=== PATIENT | male | born 1950 | race Caucasian/White ===

== ENCOUNTER 2017-06-23 16:17 | Inpatient (IN) | payer MEDICARE, OTHER ==
[~2017-06-23] VITALS: Ht 167.6 cm; Wt 54.4 kg
[2017-06-23 16:19] VITALS: BP 126/86
[2017-06-23 17:10] LABS: BASOPHILS % (AUTO) 1.9 % (0.0-2.0); EOSINOPHILS % (AUTO) 3.5 % (0.0-3.0); LYMPHOCYTES % (AUTO) 44.8 % (20.0-45.0); MEAN CORPUSCULAR HEMOGLOBIN 31.1 PG (27.0-31.0); MEAN CORPUSCULAR HGB CONC 31.1 G/DL (32.0-36.0); MEAN CORPUSCULAR VOLUME 100 FL (80-99); MEAN PLATELET VOLUME 5.8 FL (6.5-10.1); MONOCYTES % (AUTO) 9.8 % (1.0-10.0); PLATELET COUNT 228 K/UL (150-450); RED BLOOD COUNT 3.81 M/UL (4.70-6.10); RED CELL DISTRIBUTION WIDTH 12.4 % (11.6-14.8); WHITE BLOOD COUNT 5.7 K/UL (4.8-10.8)
[2017-06-23 17:23] LABS: ANION GAP 8 mmol/L (5-15); CALCIUM 8.3 MG/DL (8.5-10.1); CARBON DIOXIDE 27 MMOL/L (21-32); CHLORIDE 106 MMOL/L (98-107); GLOMERULAR FILTRATION RATE > 60 mL/min (>60); POTASSIUM 4.3 MMOL/L (3.5-5.1); SODIUM 140 MMOL/L (136-145)
[2017-06-23 17:36] LABS: ALANINE AMINOTRANSFERASE 36 U/L (12-78); ALBUMIN/GLOBULIN RATIO 0.8 (1.0-2.7); ASPARTATE AMINO TRANSFERASE 64 U/L (15-37); CKMB 4.1 NG/ML (0.0-3.6); TOTAL PROTEIN 6.9 G/DL (6.4-8.2)
[2017-06-23] MEDS ORDERED: ASPIRIN EC81 MG ORAL (18:15)
[2017-06-23] MEDS ORDERED: HYDROCHLOROTHIA25 MG ORAL (18:16)
[2017-06-23] MEDS ORDERED: TAMSULOSIN HCL0.4 MG ORAL (18:16)
[2017-06-23] MEDS ORDERED: ATORVASTATIN CA40 MG ORAL (18:17)
[2017-06-23] MEDS ORDERED: LISINOPRIL20 MG ORAL (18:17)
[2017-06-23 18:33] VITALS: BP 158/71
[2017-06-23 21:00] VITALS: BP 153/68
--- NOTE | 2017-06-23 21:43 | Emergency Room Report ---
History of Present Illness General Chief Complaint: Generalized Weakness Source: Patient, EMS Present Illness HPI 66-year-old male presents ED for evaluation. Per EMS patient coming from boarding care facility. capital campaign fundraiser called 911 because patient was found in his apt and lying in his own feces. Patient states he feels very weak. Poor appetite. Denies any fevers or chills. Denies chest pain or shortness of breath. No other aggravating or leading factors. Denies any other associated symptoms Allergies: Coded Allergies: No Known Allergies (Unverified , 06/23/17) Patient History Past Medical History: HTN Past Surgical History: none Pertinent Family History: none Social History: Denies: smoking, alcohol use, drug use Immunizations: UTD Reviewed Nursing Documentation: PMH: Agreed, PSxH: Agreed Nursing Documentation-PMH Hx Hypertension: Yes - hyperlipedema Review of Systems All Other Systems: negative except mentioned in HPI Physical Exam Vital Signs Date Time Temp Pulse Resp B/P (MAP) Pulse Ox O2 Delivery O2 Flow Rate FiO2 06/23/17 16:09 98.1 82 16 126/86 98 Room Air Sp02 EP Interpretation: reviewed, normal General Appearance: no apparent distress, GCS 15, non-toxic, thin Head: normocephalic, atraumatic Eyes: bilateral eye normal inspection, bilateral eye PERRL ENT: hearing grossly normal, normal pharynx, no angioedema, normal voice Neck: full range of motion, supple/symm/no masses Respiratory: chest non-tender, lungs clear, normal breath sounds, speaking full sentences Cardiovascular #1: regular rate, rhythm, no edema Cardiovascular #2: 2+ carotid (R), 2+ carotid (L), 2+ radial (R), 2+ radial (L) , 2+ dorsalis pedis (R), 2+ dorsalis pedis (L) Gastrointestinal: normal bowel sounds, non tender, soft, non-distended, no guarding, no rebound Rectal: deferred Genitourinary: normal inspection, no CVA tenderness Musculoskeletal: back normal, gait/station normal, normal range of motion, non- tender Neurologic: alert, oriented x3, responsive, motor strength/tone normal, sensory intact, speech normal Psychiatric: judgement/insight normal, memory normal, mood/affect normal, no suicidal/homicidal ideation Reflexes: 3+ bicep (R), 3+ bicep (L), 3+ tricep (R), 3+ tricep (L), 3+ knee (R) , 3+ knee (L) Skin: normal color, no rash, warm/dry, well hydrated Lymphatic: no adenopathy Medical Decision Making Diagnostic Impression: Primary Impression: Failure to thrive Qualified Codes: R62.7 - Adult failure to thrive Additional Impression: Episode of generalized weakness ER Course Hospital Course 66-year-old male presenting to ED with generalized weakness, unable to care for herself Differential diagnoses include: Pneumonia, UTI, sepsis, dehydration, NV/ unstable angina, failure to thrive Clinical course Patient placed on stretcher. On compliance monitor with tachycardia. After initial history and physical, I ordered labs, IV fluids, EKG, chest x-ray, IVFs Labs - no leukocytosis, hb/hct stable, electrolytes ok, troponins negative EKG - NSR, no acute ischemic changes interpreted by me CXR - no acute process Case discussed with Dr Tsai and they agreed to admit patient to their service for further care and support I feel this is a highly complex case requiring extensive working including EKG/ Rhythm strip, Xray/CT/US, Blood/urine lab work, repeat exams while in ED, and administration of strong opiates/narcotics for pain control, admission to hospital or close patient follow up. Diagnosis - failure to thrive, weakness Patient admitted to floor in serious condition Labs Test 06/23/17 16:55 White Blood Count 5.7 K/UL (4.8-10.8) Red Blood Count 3.81 M/UL (4.70-6.10) Hemoglobin 11.9 G/DL (14.2-18.0) Hematocrit 38.1 % (42.0-52.0) Mean Corpuscular Volume 100 FL (80-99) Mean Corpuscular Hemoglobin 31.1 PG (27.0-31.0) Mean Corpuscular Hemoglobin Concent 31.1 G/DL (32.0-36.0) Red Cell Distribution Width 12.4 % (11.6-14.8) Platelet Count 228 K/UL (150-450) Mean Platelet Volume 5.8 FL (6.5-10.1) Neutrophils (%) (Auto) 40.0 % (45.0-75.0) Lymphocytes (%) (Auto) 44.8 % (20.0-45.0) Monocytes (%) (Auto) 9.8 % (1.0-10.0) Eosinophils (%) (Auto) 3.5 % (0.0-3.0) Basophils (%) (Auto) 1.9 % (0.0-2.0) Sodium Level 140 MMOL/L (136-145) Potassium Level 4.3 MMOL/L (3.5-5.1) Chloride Level 106 MMOL/L (98-107) Carbon Dioxide Level 27 MMOL/L (21-32) Anion Gap 8 mmol/L (5-15) Blood Urea Nitrogen 5 mg/dL (7-18) Creatinine 1.0 MG/DL (0.55-1.30) Estimat Glomerular Filtration Rate > 60 mL/min (>60) Glucose Level 83 MG/DL (74-106) Calcium Level 8.3 MG/DL (8.5-10.1) Total Bilirubin 0.1 MG/DL (0.2-1.0) Aspartate Amino Transf (AST/SGOT) 64 U/L (15-37) Alanine Aminotransferase (ALT/SGPT) 36 U/L (12-78) Alkaline Phosphatase 163 U/L (46-116) Total Creatine Kinase 86 U/L (26-308) Creatine Kinase MB 4.1 NG/ML (0.0-3.6) Creatine Kinase MB Relative Index 4.7 Troponin I 0.003 ng/mL (0.000-0.056) Total Protein 6.9 G/DL (6.4-8.2) Albumin 3.1 G/DL (3.4-5.0) Globulin 3.8 g/dL Albumin/Globulin Ratio 0.8 (1.0-2.7) EKG Diagnostic Results Rate: normal Rhythm: NSR ST Segments: no acute changes ASA given to the pt in ED: No Rhythm Strip Diag. Results EP Interpretation: yes Rhythm: NSR, no PVC's, no ectopy Chest X-Ray Diagnostic Results Chest X-Ray Diagnostic Results : Chest X-Ray Ordered: Yes # of Views/Limited/Complete: 1 View Indication: Other - weakness EP Interpretation: Yes Interpretation: no consolidation, no effusion, no pneumothorax, no acute cardiopulmonary disease Impression: No acute disease Electronically Signed by: Electronically signed by Brooks Chambers MD Last Vital Signs Date Time Temp Pulse Resp B/P (MAP) Pulse Ox O2 Delivery O2 Flow Rate FiO2 06/23/17 21:05 98.1 91 21 153/68 98 Room Air Status: improved Disposition: ADMITTED INPATIENT Condition: Serious Referrals: NOT CHOSEN IPA/,REFERRING (PCP) BROOKS CHAMBERS M.D. Jun 23, 2017 21:43
[2017-06-23] MEDS: Atorvastatin 20mg tab ORAL SCH (23:50)
[2017-06-23] MEDS: Tamsulosin 0.4mg cap ORAL SCH (23:50)
[2017-06-23] MEDS: D5NS 1,000 ML IV SCH (23:51)
[2017-06-24] VITALS: BP 165/74
[2017-06-24 03:13] VITALS: BP 140/77
[2017-06-24 07:11] LABS: HEMOGLOBIN A1C 5.4 % (4.3-6.0)
[2017-06-24 07:21] LABS: THYROID STIMULATING HORMONE 1.734 uiU/mL (0.358-3.740)
[2017-06-24 08:00] VITALS: BP 150/78
--- NOTE | 2017-06-24 08:43 | Diagnostic Imaging Report ---
Indication: Shortness of breath Technique: One view of the chest Comparison: none Findings: Lungs and pleural spaces are clear. Heart size is normal Impression: No acute process
[2017-06-24] MEDS: Aspirin EC 81mg tab ORAL SCH (09:27)
[2017-06-24] MEDS: Lisinopril 20mg tab ORAL SCH (09:27)
[2017-06-24] MEDS: D5NS 1,000 ML IV SCH ×2 (09:28→17:49)
[2017-06-24] MEDS: Triamcinolone 0.5% Cr 15gm TOPIC SCH ×3 (11:00→17:35)
[2017-06-24] MEDS: Heparin 5000 units/ml inj SUBQ SCH ×2 (11:01→20:17)
[2017-06-24] MEDS: ceFAZolin sod 1 GM in D5W 55 ML IVPB SCH ×2 (11:36→21:45)
[2017-06-24 12:00] VITALS: BP 148/81
[2017-06-24 16:00] VITALS: BP 150/84
[2017-06-24] MEDS ORDERED: D5NS 1000ml IV ONE (16:53)
[2017-06-24] MEDS: Atorvastatin 20mg tab ORAL SCH (20:15)
[2017-06-24] MEDS: Tamsulosin 0.4mg cap ORAL SCH (20:15)
[2017-06-24 20:49] VITALS: BP_SYST 155; BP_SYST 164; BP_DIAS 92; BP_DIAS 96
--- NOTE | 2017-06-24 21:00 | History and Physical Report ---
DATE OF ADMISSION: 06/23/2017 CHIEF COMPLAINT: Generalized weakness, dehydration, cellulitis, psoriasis. HISTORY OF PRESENT ILLNESS: The patient is a 66-year-old male. He has a history of psoriasis, who presented with complaints of generalized weakness. The patient does admit to some recent diarrhea. He denies any fevers or chills. Had no cough. On evaluation in emergency room, he had diffuse psoriasis involving the arms and legs. He was hypertensive. The patient has had difficulty ambulating and walking and has been generally weak and his pillowcase maker recommended that he go to the hospital. PAST MEDICAL HISTORY: As above. PAST SURGICAL HISTORY: None. CURRENT MEDICATIONS: Reconciled and reviewed. ALLERGIES: None. SOCIAL HISTORY: The patient is a social drinker two to three beers a day. He has been smoking for 40 years. FAMILY HISTORY: None. REVIEW OF SYSTEMS: GENERAL: No fever or chills. Positive malaise and weakness. HEENT: No headaches or visual changes. CARDIOPULMONARY: No chest pain or shortness of breath. GASTROINTESTINAL: No nausea or vomiting. GENITOURINARY: No urgency or frequency. MUSCULOSKELETAL: No joint pain or swelling. NEUROLOGIC: No evidence of seizures. PHYSICAL EXAMINATION: VITAL SIGNS: Temperature 98 degrees, blood pressure 115/78, pulse 100, respirations 20. GENERAL: The patient is well-developed male, in no apparent distress. HEART: Regular rate and rhythm. LUNGS: Lungs are clear. ABDOMEN: Soft, nontender, nondistended. EXTREMITIES: Without clubbing or cyanosis. The patient has multiple plaques on the arms and legs, several of which are bleeding. LABORATORY DATA: Sodium was 140, creatinine was 1. Troponin 0.003. A1c was 5.4. TSH was 1.7. Hemoglobin 11. ASSESSMENT: This is a pleasant male admitted with complaints of generalized weakness, suspect secondary to dehydration from diarrhea. The patient may have some superficial skin infection and cellulitis. PLAN: IV hydration and antibiotics. We will start on treatment for psoriasis. PT/OT evaluation. The patient will likely need placement. Nato Tsai M.D. DR: Adams JOB#: [id number] CC:
[2017-06-25] MEDS: ceFAZolin sod 1 GM in D5W 55 ML IVPB SCH ×3 (05:05→20:52)
[2017-06-25 08:32] VITALS: BP 138/77
[2017-06-25] MEDS: Lisinopril 20mg tab ORAL SCH (08:52)
[2017-06-25] MEDS: Aspirin EC 81mg tab ORAL SCH (08:52)
[2017-06-25] MEDS: Heparin 5000 units/ml inj SUBQ SCH ×2 (08:54→20:46)
[2017-06-25] MEDS: Triamcinolone 0.5% Cr 15gm TOPIC SCH ×3 (08:56→17:31)
[2017-06-25] MEDS: D5NS 1,000 ML IV SCH (08:56)
--- NOTE | 2017-06-25 10:29 | General Progress Note ---
Assessment/Plan Problem List: (1) Cellulitis ICD Codes: L03.90 - Cellulitis, unspecified SNOMED: 915498089 (2) Psoriasis with pustules ICD Codes: L40.8 - Other psoriasis SNOMED: 51232025 (3) Episode of generalized weakness ICD Codes: R53.1 - Weakness SNOMED: 75703372 (4) Failure to thrive SNOMED: 17701550 Qualifiers: Qualified Codes: R62.7 - Adult failure to thrive Status: stable, progressing Assessment/Plan abx iv skin care coal tar and steroid cream pt/ot short tern snf for rehab and abx Subjective ROS Limited/Unobtainable: No Constitutional: Reports: malaise, weakness HEENT: Reports: no symptoms Cardiovascular: Reports: no symptoms Respiratory: Reports: no symptoms Gastrointestinal/Abdominal: Reports: no symptoms Genitourinary: Reports: no symptoms Neurologic/Psychiatric: Reports: no symptoms Endocrine: Reports: no symptoms Hematologic/Lymphatic: Reports: no symptoms Allergies: Coded Allergies: No Known Allergies (Unverified , 06/23/17) All Systems: reviewed and negative except above Subjective rash/cellulitis improving. no fever or chills. feels "weak" still. Objective Last 24 Hour Vital Signs Date Time Temp Pulse Resp B/P (MAP) Pulse Ox O2 Delivery O2 Flow Rate FiO2 06/25/17 08:52 138/77 06/25/17 08:32 98.0 101 20 138/77 98 06/24/17 20:49 96.4 83 20 155/92 98 Room Air 06/24/17 16:01 Room Air 06/24/17 16:00 97.7 88 20 150/84 97 06/24/17 12:01 Room Air 06/24/17 12:00 97.7 83 20 148/81 98 Intake and Output 06/24/17 06/25/17 19:00 07:00 Intake Total 1585 ml 675 ml Balance 1585 ml 675 ml Intake Oral 780 ml IV Total 805 ml 675 ml # Voids 9 4 # Bowel Movements 5 2 Height (Feet): 5 Height (Inches): 6.00 Weight (Pounds): 120 General Appearance: WD/WN, alert, thin Neck: supple Cardiovascular: normal rate, regular rhythm Respiratory/Chest: chest wall non-tender, lungs clear, normal breath sounds Abdomen: normal bowel sounds, non tender, soft, no organomegaly Edema: no edema noted Arm (L), no edema noted Arm (R), no edema noted Leg (L), no edema noted Leg (R), no edema noted Pedal (L), no edema noted Pedal (R), no edema noted Generalized IDA MEJIA Jun 25, 2017 10:29
[2017-06-25 11:27] VITALS: BP 158/89
[2017-06-25] MEDS: COAL TAR TOPIC SCH ×3 (12:04→20:51)
[2017-06-25 15:57] VITALS: BP 145/85
[2017-06-25] MEDS ORDERED: D5NS 1000ml IV ONE (16:27)
--- NOTE | 2017-06-25 17:09 | Wound Nurse Progress Note ---
Wound RN Progress Note Wound Consult Assessment done on this Pt. Noted with generalized psoriasis. No recommendation. follow MD's order. KINJAL MANZANO RN Jun 25, 2017 17:09
[2017-06-25 20:00] VITALS: BP 145/81
[2017-06-25] MEDS: Tamsulosin 0.4mg cap ORAL SCH (20:44)
[2017-06-25] MEDS: Atorvastatin 20mg tab ORAL SCH (20:45)
--- NOTE | 2017-06-26 00:26 | Cardiology Report ---
APPROVED REPORT EKG Measurement Heart [id number] Normal sinus rhythm Possible Left atrial enlargement Left axis deviation Abnormal ECG
[2017-06-26] MEDS: D5NS 1,000 ML IV SCH (03:20)
[2017-06-26] MEDS: ceFAZolin sod 1 GM in D5W 55 ML IVPB SCH ×2 (04:58→15:26)
[2017-06-26 07:50] VITALS: BP 139/88
[2017-06-26] MEDS: Lisinopril 20mg tab ORAL SCH (08:53)
[2017-06-26] MEDS: Aspirin EC 81mg tab ORAL SCH (08:53)
[2017-06-26] MEDS: Heparin 5000 units/ml inj SUBQ SCH (08:55)
[2017-06-26] MEDS: COAL TAR TOPIC SCH (08:55)
[2017-06-26] MEDS: Triamcinolone 0.5% Cr 15gm TOPIC SCH ×2 (08:55→12:27)
[2017-06-26] MEDS ORDERED: KENALOG 0.5% CR15 GM TOPIC (09:51)
[2017-06-26] MEDS ORDERED: COAL TAR TOPIC (09:51)
[2017-06-26 11:28] VITALS: BP 145/73
--- NOTE | 2017-06-26 23:00 | Discharge Summary ---
DATE OF ADMISSION: 06/24/2017 DATE OF DISCHARGE: 06/26/2017 ADMISSION DIAGNOSES: 1. Failure to thrive. 2. Dehydration. 3. Severe psoriasis. 4. Cellulitis. DISCHARGE DIAGNOSES: 1. Failure to thrive. 2. Dehydration. 3. Severe psoriasis. 4. Cellulitis. HOSPITAL COURSE: The patient is a pleasant male, who presented with complaints of failure to thrive. He had diffuse psoriasis with superinfection. He received IV antibiotics, topical steroid cream and coal tar. He improved. He was also hydrated aggressively. On discharge, he was stable, but still weak. He will be discharged to a long-term facility. Continue wound care. Antibiotics and therapy. DISCHARGE MEDICATIONS: Please see discharge medication list for discharge medications. DIET: Regular diet. ACTIVITIES: Ad-gary. FOLLOWUP: The patient will follow up in one to two days at long-term facility. Nato Tsai M.D. DR: Shaniqua JOB#: [id number] CC:
== END 2017-06-26 16:15 | DRG 596 ==
LOC: EDBD 16:17 → EMR 16:35 → 4E 18:13 → EDBEDREQ 18:17 → 4E 06-25 22:38
DX: L40.8 Other psoriasis (principal); I10 Essential (primary) hypertension; L03.90 Cellulitis, unspecified; R62.7 Adult failure to thrive; R53.1 Weakness; F17.200 Nicotine dependence, unspecified, uncomplicated; E86.0 Dehydration
CPT/HCPCS: 36415; 71010; 80053; 82378; 82550; 82553; 83036; 84443; 84484; 85025; 87081; 87324; 93005; 99285

== ENCOUNTER 2018-07-04 11:58 | Inpatient (IN) | payer MEDICARE, OTHER ==
[~2018-07-04] VITALS: Ht 170.2 cm; Wt 71.7 kg
[~2018-07-04 11:58] MED LIST: ASPIRIN EC81 MG ORAL; ATORVASTATIN CA40 MG ORAL; COAL TAR TOPIC; HYDROCHLOROTHIA25 MG ORAL; KENALOG 0.5% CR15 GM TOPIC; LISINOPRIL20 MG ORAL; TAMSULOSIN HCL0.4 MG ORAL
[2018-07-04 12:00] VITALS: BP 149/107
[2018-07-04] MEDS ORDERED: MICROZIDE12.5 M1 PO (12:07)
[2018-07-04] MEDS ORDERED: NEURONTIN300 MG ORAL (12:07)
[2018-07-04 13:40] LABS: ANION GAP 9 mmol/L (5-15); BLOOD UREA NITROGEN 9 mg/dL (7-18); CALCIUM 7.4 MG/DL (8.5-10.1); CARBON DIOXIDE 24 MMOL/L (21-32); CHLORIDE 109 MMOL/L (98-107); CREATININE 1.1 MG/DL (0.55-1.30); POTASSIUM 4.4 MMOL/L (3.5-5.1); SODIUM 142 MMOL/L (136-145)
--- NOTE | 2018-07-04 13:40 | Diagnostic Imaging Report ---
Indication: Chest pain Technique: One view of the chest Comparison: 06/23/2017 Findings: 9 mm nodular opacity projects at the right lateral lower lung, equivocally evident previously but more conspicuous currently. Similar opacity projects on the left, both of these are possibly but not definitively nipple shadows. Ill-defined opacities projected at the regions of the sixth ribs bilaterally. Lungs and pleural spaces are otherwise clear. The heart size is normal. Impression: Bilateral nodular opacities versus nipple shadows. Consider repeat chest radiograph with nipple markers Other more ill-defined possible nodular opacities also noted. Follow-up radiography might likewise be useful, with consideration for CT should abnormalities persist No definite acute abnormality demonstrated Findings discussed by phone with Dr. Salinas at the time of interpretation
[2018-07-04 13:58] LABS: ALANINE AMINOTRANSFERASE 28 U/L (12-78); ALBUMIN 1.7 G/DL (3.4-5.0); ALBUMIN/GLOBULIN RATIO 0.4 (1.0-2.7); ALKALINE PHOSPHATASE 122 U/L (46-116); ASPARTATE AMINO TRANSFERASE 61 U/L (15-37); BILIRUBIN,TOTAL 0.4 MG/DL (0.2-1.0); CKMB 3.6 NG/ML (0.0-3.6); CREATINE KINASE 215 U/L (26-308)
[2018-07-04 14:27] LABS: APPEARANCE,URINE CLEAR; BASOPHILS % (AUTO) 2.1 % (0.0-2.0); BILIRUBIN, URINE NEGATIVE (NEGATIVE); EOSINOPHILS % (AUTO) 2.1 % (0.0-3.0); GLUCOSE, URINE (UA) NEGATIVE (NEGATIVE); HEMATOCRIT 27.6 % (42.0-52.0); HEMOGLOBIN 8.7 G/DL (14.2-18.0); KETONES,URINE NEGATIVE (NEGATIVE); LEUKOCYTE ESTERASE ,URINE 1+ (NEGATIVE); LYMPHOCYTES % (AUTO) 23.7 % (20.0-45.0); MEAN CORPUSCULAR VOLUME 102 FL (80-99); MONOCYTES % (AUTO) 12.2 % (1.0-10.0); NEUTROPHILS % (AUTO) 59.9 % (45.0-75.0); NITRITE,URINE NEGATIVE (NEGATIVE); PH,URINE 6.5 (4.5-8.0); PLATELET COUNT 261 K/UL (150-450); PROTEIN,URINE 1+ (NEGATIVE); UROBILINOGEN,URINE 4 MG/DL (0.0-1.0); WHITE BLOOD COUNT 6.8 K/UL (4.8-10.8)
[2018-07-04 14:33] LABS: COLOR,URINE YELLOW
[2018-07-04] MEDS ORDERED: cefTRIAXone 1 GM in D5W 55 ML IVPB ONE (15:00)
[2018-07-04 15:23] VITALS: BP 152/85
--- NOTE | 2018-07-04 15:51 | Emergency Room Report ---
History of Present Illness General Chief Complaint: General Complaint Source: Patient Present Illness HPI Patient presents with complaints of decreased ambulation Patient has had increased redness and swelling to both of his legs Has history of cirrhosis The water main installer helper who visited the patient today reports a significantly disheveled living area patient himself denies any vomiting denies any diarrhea He does complain of general weakness And eyes any chest pain or short of breath denies any flank pain or trauma Allergies: Coded Allergies: No Known Allergies (Unverified , 06/23/17) Patient History Past Medical History: see triage record Pertinent Family History: none Reviewed Nursing Documentation: PMH: Agreed; PSxH: Agreed Nursing Documentation-PMH Hx Cardiac Problems: Yes - htn, hyperlipidemia Hx Hypertension: Yes Hx Cancer: No Hx Gastrointestinal Problems: No Hx Neurological Problems: Yes - psoriasis Hx Weakness: Yes - generalized Review of Systems All Other Systems: negative except mentioned in HPI Physical Exam Vital Signs Date Time Temp Pulse Resp B/P (MAP) Pulse Ox O2 Delivery O2 Flow Rate FiO2 07/04/18 11:54 97.5 112 16 168/100 99 Room Air Sp02 EP Interpretation: reviewed, normal General Appearance: no apparent distress Head: normocephalic, atraumatic Eyes: bilateral eye PERRL, bilateral eye EOMI ENT: hearing grossly normal, dry mucus membranes Neck: supple Respiratory: lungs clear, no rhonchi, no accessory muscle use Cardiovascular #1: regular rate, rhythm Gastrointestinal: non tender, soft, other - Some ascites Musculoskeletal: other - Significant swelling and erythema bilateral lower extremity, venous stasis Neurologic: alert, oriented x3, responsive Skin: other - As above Lymphatic: other - Edema bilaterally Medical Decision Making Diagnostic Impression: Primary Impression: Cellulitis Additional Impressions: Failure to thrive Psoriasis with pustules ER Course Patient's presentation is concerning for venous stasis Secondary cellulitis Patient initiated on broad-spectrum antibiotics Baseline blood work are appropriate Patient further hydrated and requires inpatient care Labs Test 07/04/18 13:00 07/04/18 14:15 07/04/18 15:15 Sodium Level 142 MMOL/L (136-145) Potassium Level 4.4 MMOL/L (3.5-5.1) Chloride Level 109 MMOL/L (98-107) Carbon Dioxide Level 24 MMOL/L (21-32) Anion Gap 9 mmol/L (5-15) Blood Urea Nitrogen 9 mg/dL (7-18) Creatinine 1.1 MG/DL (0.55-1.30) Estimat Glomerular Filtration Rate > 60 mL/min (>60) Glucose Level 95 MG/DL (74-106) Lactic Acid Level 2.90 mmol/L (0.4-2.0) Calcium Level 7.4 MG/DL (8.5-10.1) Total Bilirubin 0.4 MG/DL (0.2-1.0) Aspartate Amino Transf (AST/SGOT) 61 U/L (15-37) Alanine Aminotransferase (ALT/SGPT) 28 U/L (12-78) Alkaline Phosphatase 122 U/L (46-116) Total Creatine Kinase 215 U/L (26-308) Creatine Kinase MB 3.6 NG/ML (0.0-3.6) Creatine Kinase MB Relative Index 1.6 Troponin I 0.015 ng/mL (0.000-0.056) Pro-B-Type Natriuretic Peptide 2195 pg/mL (0-125) Total Protein 5.5 G/DL (6.4-8.2) Albumin 1.7 G/DL (3.4-5.0) Globulin 3.8 g/dL Albumin/Globulin Ratio 0.4 (1.0-2.7) Lipase 88 U/L (73-393) White Blood Count 6.8 K/UL (4.8-10.8) Red Blood Count 2.70 M/UL (4.70-6.10) Hemoglobin 8.7 G/DL (14.2-18.0) Hematocrit 27.6 % (42.0-52.0) Mean Corpuscular Volume 102 FL (80-99) Mean Corpuscular Hemoglobin 32.3 PG (27.0-31.0) Mean Corpuscular Hemoglobin Concent 31.6 G/DL (32.0-36.0) Red Cell Distribution Width 13.0 % (11.6-14.8) Platelet Count 261 K/UL (150-450) Mean Platelet Volume 5.9 FL (6.5-10.1) Neutrophils (%) (Auto) 59.9 % (45.0-75.0) Lymphocytes (%) (Auto) 23.7 % (20.0-45.0) Monocytes (%) (Auto) 12.2 % (1.0-10.0) Eosinophils (%) (Auto) 2.1 % (0.0-3.0) Basophils (%) (Auto) 2.1 % (0.0-2.0) Urine Color Yellow Urine Appearance Clear Urine pH 6.5 (4.5-8.0) Urine Specific [place] 1.015 (1.005-1.035) Urine Protein 1+ (NEGATIVE) Urine Glucose (UA) Negative (NEGATIVE) Urine Ketones Negative (NEGATIVE) Urine Blood Negative (NEGATIVE) Urine Nitrite Negative (NEGATIVE) Urine Bilirubin Negative (NEGATIVE) Urine Urobilinogen 4 MG/DL (0.0-1.0) Urine Leukocyte Esterase 1+ (NEGATIVE) Urine RBC 0 /HPF (0 - 0) Urine WBC 2-4 /HPF (0 - 0) Urine Squamous Epithelial Cells Occasional /LPF Urine Bacteria Occasional /HPF (NONE) Rhythm Strip Diag. Results EP Interpretation: yes Rate: 66 Rhythm: NSR, no PVC's, no ectopy Chest X-Ray Diagnostic Results Chest X-Ray Diagnostic Results : Chest X-Ray Ordered: Yes # of Views/Limited/Complete: 1 View Indication: Chest Pain EP Interpretation: Yes Interpretation: no consolidation, no effusion, no pneumothorax, other - Questionable opacities bilateral lungs discuss with radiology with Impression: No acute disease Electronically Signed by: Jorge Salinas DO Last Vital Signs Date Time Temp Pulse Resp B/P (MAP) Pulse Ox O2 Delivery O2 Flow Rate FiO2 07/04/18 15:38 Room Air 07/04/18 15:23 98.0 98 18 152/85 (107) 98 Status: improved Disposition: ADMITTED INPATIENT Condition: Serious Referrals: NOT CHOSEN IPA/,REFERRING (PCP) Jorge Salinas DO Jul 04, 2018 15:51
[2018-07-04] MEDS: D5NS 1,000 ML IV SCH (17:30)
[2018-07-04] MEDS ORDERED: Vancomycin 1.5 GM/D5W 250ML IVPB SCH (18:00)
[2018-07-04] MEDS: Triamcinolone 0.5% Cr 15gm TOPIC SCH (18:11)
[2018-07-04 20:00] VITALS: BP 147/84
[2018-07-04] MEDS: Tamsulosin 0.4mg cap ORAL SCH (21:29)
[2018-07-04] MEDS: Atorvastatin 20mg tab ORAL SCH (21:29)
[2018-07-05] VITALS: BP 145/90
[2018-07-05 04:00] VITALS: BP 153/94
[2018-07-05] MEDS: D5NS 1,000 ML IV SCH ×2 (05:44→17:20)
[2018-07-05] MEDS: Vancomycin 750mg/NS 250ml IVPB SCH ×2 (05:44→17:20)
[2018-07-05 08:00] VITALS: BP 139/76
[2018-07-05] MEDS: Aspirin EC 81mg tab ORAL SCH (08:22)
[2018-07-05] MEDS: Triamcinolone 0.5% Cr 15gm TOPIC SCH ×2 (08:23→13:46)
[2018-07-05] MEDS: Lisinopril 20mg tab ORAL SCH (08:23)
--- NOTE | 2018-07-05 10:45 | History and Physical Report ---
DATE OF ADMISSION: 07/04/2018 CHIEF COMPLAINT: Cellulitis, failure to thrive, anemia, and altered mental status. HISTORY OF PRESENT ILLNESS: The patient is a 67-year-old male well known to me. He has a history of hypertensive heart disease, history of psoriasis, and hyperlipidemia. He presented from home with complaints of failure to thrive and severe psoriasis with superinfection. According to the home healthcare services, the patient has been unable to care for himself. He has been noted to have worsening psoriasis with erythema. He has had subjective fevers and chills. His apartment was covered in stool and feces as well as urine. He was transferred here to the emergency room because the patient's landlord and home health service felt that he was unable to care for himself. On evaluation in the emergency room, he was noted to have cellulitis of his lower extremities. He had an elevated natriuretic peptide level with elevated lactic acid level. His urine was clear. He has been started on antibiotic therapy and is now admitted for further evaluation and care. PAST MEDICAL HISTORY: As above. PAST SURGICAL HISTORY: None. CURRENT MEDICATIONS: Reconciled and reviewed. ALLERGIES: None. FAMILY HISTORY: None. SOCIAL HISTORY: The patient has prior history of alcohol abuse. He is a smoker. Denies any drugs. REVIEW OF SYSTEMS: GENERAL: Positive malaise and weakness. No fevers or chills. HEENT: No headaches or visual changes. CARDIOPULMONARY: No chest pain or shortness of breath. GASTROINTESTINAL: No nausea or vomiting. GENITOURINARY: No urgency or frequency. MUSCULOSKELETAL: No joint pain or swelling. NEUROLOGIC: No evidence of seizures. PHYSICAL EXAMINATION: VITAL SIGNS: Temperature is 98.6, pulse 115, respirations 20, and blood pressure 147/84. GENERAL: The patient is a chronically ill-appearing thin male, in no apparent distress. He has diffuse scaling plaques on his arms and legs with erythema, scabs. There is no asiya pus noted. LABORATORY DATA: UA is clear. White count 7, hemoglobin 8, hematocrit 27, and platelets 261,000. Sodium 142. Lactic acid level was 2.9. Creatinine is 1.1. Natriuretic peptide was 2100. Albumin was 1.7. Urine was clear. ASSESSMENT: This is a 67-year-old male admitted with complaints of failure to thrive, cellulitis, psoriasis, dehydration, tachycardia, anemia, and hypertension. PLAN: 1. IV hydration. 2. IV antibiotics. 3. Skin care. 4. Check an iron panel and stool for occult blood. 5. Continue outpatient antihypertensive regimen. 6. Cardiology evaluation. 7. The patient will need placement in a retirement facility. Nato Tsai M.D. DR: XAVIER JOB#: [id number] CC:
[2018-07-05 12:00] VITALS: BP 135/81
[2018-07-05 16:00] VITALS: BP 137/87
[2018-07-05] MEDS: Triamcinolone 0.1% 15gm Cr TOPIC SCH ×2 (16:15→18:13)
[2018-07-05] MEDS ORDERED: Tubing IV Secondary IV ONE (17:35)
[2018-07-05 20:00] VITALS: BP 145/90
[2018-07-05] MEDS: Tamsulosin 0.4mg cap ORAL SCH (20:32)
[2018-07-05] MEDS: Atorvastatin 20mg tab ORAL SCH (20:32)
[2018-07-05] MEDS ORDERED: Albuterol/Ipratropium 3ml neb HHN PRN (22:45)
[2018-07-05] MEDS ORDERED: Albuterol 90mcg Inhaler 8gm INH PRN (22:45)
[2018-07-06 04:00] VITALS: BP 119/95
[2018-07-06] MEDS: Vancomycin 750mg/NS 250ml IVPB SCH (07:23)
--- NOTE | 2018-07-06 07:49 | General Progress Note ---
Assessment/Plan Problem List: (1) Psoriasis with pustules ICD Codes: L40.8 - Other psoriasis SNOMED: 48555298 (2) Cellulitis ICD Codes: L03.90 - Cellulitis, unspecified SNOMED: 058890739 (3) Failure to thrive SNOMED: 50559038 Status: progressing Assessment/Plan iv abx pain rx topical steroids Subjective ROS Limited/Unobtainable: No Constitutional: Reports: malaise, weakness HEENT: Reports: no symptoms Cardiovascular: Reports: no symptoms Respiratory: Reports: no symptoms Gastrointestinal/Abdominal: Reports: no symptoms Genitourinary: Reports: no symptoms Neurologic/Psychiatric: Reports: no symptoms Endocrine: Reports: no symptoms Hematologic/Lymphatic: Reports: no symptoms Allergies: Coded Allergies: No Known Allergies (Unverified , 06/23/17) All Systems: reviewed and negative except above Subjective c/o pain and itching. on iv abx. Objective Last 24 Hour Vital Signs Date Time Temp Pulse Resp B/P (MAP) Pulse Ox O2 Delivery O2 Flow Rate FiO2 07/06/18 04:00 97.3 95 17 119/95 (103) 98 07/05/18 21:00 Room Air 07/05/18 20:00 98.1 107 17 145/90 (108) 96 07/05/18 16:00 97.0 100 20 137/87 (104) 100 07/05/18 12:00 97.2 91 19 135/81 (99) 100 07/05/18 09:37 Room Air 07/05/18 08:23 139/76 07/05/18 08:00 97.9 105 18 139/76 (97) 100 Intake and Output 07/05/18 07/06/18 19:00 07:00 Intake Total 1800.000 ml 750 ml Balance 1800.000 ml 750 ml Intake Oral 800 ml 300 ml IV Total 1000.000 ml 450 ml # Voids 2 2 Laboratory Tests 07/06/18 05:25: Vancomycin Level Trough 16.8H Height (Feet): 5 Height (Inches): 7.00 Weight (Pounds): 158 General Appearance: WD/WN, alert Neck: supple Cardiovascular: normal rate, regular rhythm Respiratory/Chest: chest wall non-tender, lungs clear, normal breath sounds Abdomen: normal bowel sounds, non tender, soft, no organomegaly Edema: no edema noted Arm (L), no edema noted Arm (R), no edema noted Leg (L), no edema noted Leg (R), no edema noted Pedal (L), no edema noted Pedal (R), no edema noted Generalized Neurologic: 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
[2018-07-06 08:00] VITALS: BP 147/98
[2018-07-06] MEDS: Aspirin EC 81mg tab ORAL SCH (08:49)
[2018-07-06] MEDS: Lisinopril 20mg tab ORAL SCH (08:49)
[2018-07-06] MEDS: D5NS 1,000 ML IV SCH ×2 (08:50→21:50)
[2018-07-06] MEDS: Vancomycin 1.5 GM/D5W 250ML IVPB SCH (08:50)
[2018-07-06] MEDS: Tylenol #3 tab (300mg/30mg) ORAL PRN ×2 (08:53→21:02)
[2018-07-06] MEDS: Triamcinolone 0.1% 15gm Cr TOPIC SCH (08:57)
--- NOTE | 2018-07-06 11:31 | Diagnostic Imaging Report ---
Indication: Chest pain Technique: Continuous helical transaxial imaging of the chest was obtained from the thoracic inlet to the upper abdomen. No intravenous contrast was administered. Coronal 2-D reformats were also obtained. Total Dose length Product (DLP): 715.[address] Dose Index Volume (CTDIvol): 20.02 mGy Comparison: none Findings: Trace pleural effusions are present bilaterally. The lungs are clear. There is mild posterior basal atelectasis. No adenopathy seen. The visualized part of the upper abdomen notable for diffuse moderate to severe low-attenuation of the liver and mild ascites. There is also nodularity of the liver surface indicative of cirrhosis chronic disease. Gallbladder is contracted. Aorta is mildly calcified. IMPRESSION: Trace bilateral pleural effusions and associated posterior basal atelectasis. Chronic liver disease/cirrhosis and fatty infiltration. Mild ascites. Atherosclerotic vascular disease The CT scanner at [facility] is accredited by the [employer] and the scans are performed using dose optimization techniques as appropriate to a performed exam including Automatic Exposure control.
[2018-07-06 12:00] VITALS: BP 144/70
[2018-07-06] MEDS: Triamcinolone 0.5% Cr 15gm TOPIC SCH ×2 (13:26→18:00)
[2018-07-06 16:00] VITALS: BP 148/81
[2018-07-06 20:00] VITALS: BP 140/86
[2018-07-06] MEDS: Atorvastatin 20mg tab ORAL SCH (20:57)
[2018-07-06] MEDS: Tamsulosin 0.4mg cap ORAL SCH (20:57)
[2018-07-07] VITALS: BP 152/79
[2018-07-07] MEDS: D5NS 1,000 ML IV SCH ×2 (00:47→12:43)
[2018-07-07 04:00] VITALS: BP 151/91
[2018-07-07] MEDS: Tylenol #3 tab (300mg/30mg) ORAL PRN ×2 (04:25→18:03)
[2018-07-07] MEDS: Vancomycin 1.5 GM/D5W 250ML IVPB SCH (07:02)
[2018-07-07 08:00] VITALS: BP 155/85
[2018-07-07] MEDS: Lisinopril 20mg tab ORAL SCH (08:56)
[2018-07-07] MEDS: Aspirin EC 81mg tab ORAL SCH (08:57)
[2018-07-07] MEDS: Triamcinolone 0.5% Cr 15gm TOPIC SCH ×3 (11:10→16:54)
[2018-07-07 12:00] VITALS: BP 180/100
[2018-07-07] MEDS ORDERED: cloNIDine 0.2mg Tab ORAL SCH (12:30)
[2018-07-07 16:00] VITALS: BP 150/82
--- NOTE | 2018-07-07 18:09 | General Progress Note ---
Assessment/Plan Problem List: (1) Psoriasis with pustules ICD Codes: L40.8 - Other psoriasis SNOMED: 03364254 (2) Cellulitis ICD Codes: L03.90 - Cellulitis, unspecified SNOMED: 160213398 (3) Failure to thrive SNOMED: 45110228 Status: stable, progressing Assessment/Plan iv abx follow up cultures check echo pain rx topical steroids skin care Subjective ROS Limited/Unobtainable: No Constitutional: Reports: malaise, weakness HEENT: Reports: no symptoms Cardiovascular: Reports: no symptoms Respiratory: Reports: no symptoms Gastrointestinal/Abdominal: Reports: no symptoms Genitourinary: Reports: no symptoms Neurologic/Psychiatric: Reports: no symptoms Endocrine: Reports: no symptoms Hematologic/Lymphatic: Reports: anemia Allergies: Coded Allergies: No Known Allergies (Unverified , 06/23/17) All Systems: reviewed and negative except above Subjective c/o pain and itching. on iv abx. +blood cultures noted. ID called. no fevers Objective Last 24 Hour Vital Signs Date Time Temp Pulse Resp B/P (MAP) Pulse Ox O2 Delivery O2 Flow Rate FiO2 07/07/18 16:00 97.7 94 20 150/82 (104) 97 07/07/18 12:43 180/100 07/07/18 12:00 98.0 93 18 180/100 (126) 99 07/07/18 09:00 Room Air 07/07/18 08:56 155/55 07/07/18 08:00 98.1 90 20 155/85 (108) 99 07/07/18 04:55 97.7 07/07/18 04:00 97.7 85 19 151/91 (111) 99 07/07/18 00:00 97.6 87 19 152/79 (103) 97 07/06/18 21:00 Room Air 07/06/18 20:00 97.6 98 20 140/86 (104) 98 Intake and Output 07/06/18 07/07/18 18:59 06:59 Intake Total 1925 ml 1100 ml Balance 1925 ml 1100 ml Intake Oral 1000 ml 250 ml IV Total 925 ml 850 ml # Voids 4 2 # Bowel Movements 1 Height (Feet): 5 Height (Inches): 7.00 Weight (Pounds): 158 Objective General Appearance: WD/WN, alert Neck: supple Cardiovascular: normal rate, regular rhythm Respiratory/Chest: chest wall non-tender, lungs clear, normal breath sounds Abdomen: normal bowel sounds, non tender, soft, no organomegaly Edema: no edema noted Arm (L), no edema noted Arm (R), no edema noted Leg (L), no edema noted Leg (R), no edema noted Pedal (L), no edema noted Pedal (R), no edema noted Generalized Neurologic: 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
[2018-07-07 20:00] VITALS: BP 138/85
[2018-07-07] MEDS: Atorvastatin 20mg tab ORAL SCH (21:09)
[2018-07-07] MEDS: Tamsulosin 0.4mg cap ORAL SCH (21:09)
[2018-07-08] VITALS (7 sets, daily range): BP systolic 130–160; BP diastolic 76–91
--- NOTE | 2018-07-08 00:42 | Consultation ---
DATE OF CONSULTATION: 07/07/2018 INFECTIOUS DISEASE CONSULT: CONSULTING PHYSICIAN: Davin Friend M.D. PRIMARY ATTENDING: Nato Tasi M.D. This consult is for coverage of Dr. Lovell. REASON FOR CONSULT: Cellulitis. HISTORY OF PRESENT ILLNESS: This 67-year-old male admitted on 07/04/2018 complaining of weakness, decrease in ambulation, erythema, and itching of legs. The patient has also psoriasis. The patient also has a recent history of upper respiratory infection. PAST MEDICAL HISTORY: Significant for hypertension, anemia, hyperlipidemia, failure to thrive, and psoriasis, for psoriasis getting topical treatment. ALLERGIES: No known drug allergies. MEDICATIONS: Getting Cpacol, topical triamcinolone cream, Tylenol with codeine, vancomycin, aspirin, lisinopril, atorvastatin, gabapentin, and Flomax. SOCIAL HISTORY: . Has caregiver. Lives at home. History of alcohol abuse and smoking. REVIEW OF SYSTEMS: Weakness. Has significant fever. Has had coughing that is productive. No nausea. No vomiting. No problem passing urine. Has itching more in the lower extremities. PHYSICAL EXAMINATION: VITAL SIGNS: Temperature 98, blood pressure 180/100, and pulse 93. GENERAL APPEARANCE: No acute distress. Seems to be thin. HEAD AND NECK: V[place] conjunctivae. HEART: Normal rate. LUNGS: Clear. ABDOMEN: Soft and nontender. EXTREMITIES: No edema. SKIN: Erythema, more in the back and lower extremity, which has areas of shallow ulcers. Has had hyperkeratoses of skin. LABORATORY AND DIAGNOSTIC DATA: WBC 6.8, hemoglobin 8.7, hematocrit 27.6, and platelets 261. Sodium 142, potassium 4.4, chloride 109, bicarbonate 24, BUN 9, and creatinine 1.1. The patient had lactic acidosis at the time of admission that has resolved. UA was negative. Blood culture growing diphtheroids. IMPRESSION: Cellulitis, seems to be more in the legs. The patient has failure to thrive, weakness, cannot ambulate, has disseminated psoriasis, has anemia, hyperlipidemia, anemia, lactic acidosis that resolved, has hypertension. RECOMMENDATION: We will continue with vancomycin. At the end of my exam, I thank Dr. Tsai, for involving me in the care of this patient. Davin Friend M.D. DR: BLANCHE JOB#: [id number] CC:
[2018-07-08] MEDS: D5NS 1,000 ML IV SCH ×2 (02:29→21:02)
[2018-07-08] MEDS: Tylenol #3 tab (300mg/30mg) ORAL PRN (06:20)
--- NOTE | 2018-07-08 07:31 | General Progress Note ---
Assessment/Plan Problem List: (1) Psoriasis with pustules ICD Codes: L40.8 - Other psoriasis SNOMED: 34126312 (2) Cellulitis ICD Codes: L03.90 - Cellulitis, unspecified SNOMED: 182094655 (3) Failure to thrive SNOMED: 78646302 Status: stable, progressing Assessment/Plan iv abx per id follow up cultures check echo- pending pain rx topical steroids skin care dc planning to snf once cleared by ID Subjective ROS Limited/Unobtainable: No Constitutional: Reports: malaise, weakness HEENT: Reports: no symptoms Cardiovascular: Reports: no symptoms Respiratory: Reports: no symptoms Gastrointestinal/Abdominal: Reports: no symptoms Genitourinary: Reports: no symptoms Neurologic/Psychiatric: Reports: no symptoms Endocrine: Reports: no symptoms Hematologic/Lymphatic: Reports: no symptoms Allergies: Coded Allergies: No Known Allergies (Unverified , 06/23/17) All Systems: reviewed and negative except above Subjective c/o pain and itching. on iv abx. +blood cultures noted. ID appreciated. vanco continued. Objective Last 24 Hour Vital Signs Date Time Temp Pulse Resp B/P (MAP) Pulse Ox O2 Delivery O2 Flow Rate FiO2 07/08/18 04:00 97.2 95 19 136/78 (97) 100 07/08/18 00:00 98.9 92 20 148/83 (104) 99 07/07/18 21:00 Room Air 07/07/18 20:00 97.7 90 19 138/85 (102) 100 07/07/18 18:33 97.7 07/07/18 16:00 97.7 94 20 150/82 (104) 97 07/07/18 12:43 180/100 07/07/18 12:00 98.0 93 18 180/100 (126) 99 07/07/18 09:00 Room Air 07/07/18 08:56 155/55 07/07/18 08:00 98.1 90 20 155/85 (108) 99 Intake and Output 07/07/18 07/08/18 19:00 07:00 Intake Total 1505 ml 600 ml Balance 1505 ml 600 ml Intake Oral 680 ml IV Total 825 ml 600 ml # Voids 4 # Bowel Movements 2 Laboratory Tests 07/08/18 05:45: Vancomycin Level Trough 13.1H Height (Feet): 5 Height (Inches): 7.00 Weight (Pounds): 158 Objective General Appearance: WD/WN, alert Neck: supple Cardiovascular: normal rate, regular rhythm Respiratory/Chest: chest wall non-tender, lungs clear, normal breath sounds Abdomen: normal bowel sounds, non tender, soft, no organomegaly Edema: no edema noted Arm (L), no edema noted Arm (R), no edema noted Leg (L), no edema noted Leg (R), no edema noted Pedal (L), no edema noted Pedal (R), no edema noted Generalized 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
[2018-07-08] MEDS: Lisinopril 20mg tab ORAL SCH (09:07)
[2018-07-08] MEDS: Aspirin EC 81mg tab ORAL SCH (09:07)
[2018-07-08] MEDS: Triamcinolone 0.5% Cr 15gm TOPIC SCH ×3 (09:07→18:20)
[2018-07-08] MEDS: Vancomycin 1.5 GM/D5W 250ML IVPB SCH (09:07)
--- NOTE | 2018-07-08 14:29 | Infectious Diseases Prog Note ---
Assessment/Plan Assessment/Plan A; Cellulitis of legs Psoriasis Anemia HPN FTT P; Continue IV vancomycin Subjective ROS Limited/Unobtainable: Yes Constitutional: Reports: no symptoms Respiratory: Reports: no symptoms Cardiovascular: Reports: no symptoms Gastrointestinal/Abdominal: Reports: no symptoms Musculoskeletal: Reports: pain Allergies: Coded Allergies: No Known Allergies (Unverified , 06/23/17) Objective Vital Signs Last 24 Hour Vital Signs Date Time Temp Pulse Resp B/P (MAP) Pulse Ox O2 Delivery O2 Flow Rate FiO2 07/08/18 09:07 136/78 07/08/18 09:00 Room Air 07/08/18 04:00 97.2 95 19 136/78 (97) 100 07/08/18 00:00 98.9 92 20 148/83 (104) 99 07/07/18 21:00 Room Air 07/07/18 20:00 97.7 90 19 138/85 (102) 100 07/07/18 18:33 97.7 07/07/18 16:00 97.7 94 20 150/82 (104) 97 Height (Feet): 5 Height (Inches): 7.00 Weight (Pounds): 158 HEENT: mucous membranes moist Respiratory/Chest: lungs clear Cardiovascular: normal rate Abdomen: soft, non tender Extremities: other - periankle edema Skin: rash, other - more in legs Neurologic/Psychiatric: alert, responsive Laboratory Tests Test 07/08/18 05:45 Vancomycin Level Trough 13.1 ug/mL (5.0-12.0) H Current Medications Medications (Trade) Dose Ordered Sig/Elisa Route PRN Reason Start Time Stop Time Status Last Admin Dose Admin Acetaminophen/ Codeine Phosphate (Tylenol #3) 1 tab Q6H PRN ORAL For Pain 07/06/18 07:51 07/13/18 07:50 07/08/18 06:20 Aspirin (Ecotrin) 81 mg DAILY ORAL 07/05/18 09:00 08/04/18 08:59 07/08/18 09:07 Atorvastatin Calcium (Lipitor) 40 mg BEDTIME ORAL 07/04/18 21:00 08/03/18 20:59 07/07/18 21:09 Cetylpyridinium Chloride (Cepacol) 1 lozg Q2H PRN STEWART SORE THROAT 07/07/18 11:30 08/06/18 11:29 07/08/18 09:13 Dextrose/Sodium Chloride 1,000 ml @ 75 mls/hr [id number] IV 07/04/18 16:30 08/03/18 16:29 07/08/18 02:29 Gabapentin (Neurontin) 300 mg BEDTIME ORAL 07/04/18 21:00 08/03/18 20:59 07/07/18 21:10 Lisinopril (Prinivil) 20 mg DAILY ORAL 07/05/18 09:00 08/04/18 08:59 07/08/18 09:07 Tamsulosin HCl (Flomax) 0.4 mg BEDTIME ORAL 07/04/18 21:00 08/03/18 20:59 07/07/18 21:09 Triamcinolone Acetonide (Kenalog 0.5% Cr) 1 applic THREE TIMES A DAY TOPIC 07/06/18 13:00 08/05/18 12:59 07/08/18 12:52 Vancomycin HCl (Vanco rx to dose) 1 ea DAILY PRN MISC Per rx protocol 07/04/18 16:30 08/03/18 16:29 Vancomycin HCl/ Dextrose 250 ml @ 125 mls/hr Q24H IVPB 07/06/18 07:00 07/11/18 06:59 07/08/18 09:07 Davin Friend MD Jul 08, 2018 14:29
[2018-07-08] MEDS: Atorvastatin 20mg tab ORAL SCH (20:06)
[2018-07-08] MEDS: Tamsulosin 0.4mg cap ORAL SCH (20:06)
[2018-07-08] MEDS: Heparin 5000 units/ml inj SUBQ SCH (20:08)
[2018-07-09] VITALS (7 sets, daily range): BP systolic 131–159; BP diastolic 76–86
[2018-07-09] MEDS: D5NS 1,000 ML IV SCH (03:10)
[2018-07-09] MEDS: Vancomycin 1.5 GM/D5W 250ML IVPB SCH (07:10)
[2018-07-09] MEDS: Aspirin EC 81mg tab ORAL SCH (08:44)
[2018-07-09] MEDS: Lisinopril 20mg tab ORAL SCH (08:44)
[2018-07-09] MEDS: Heparin 5000 units/ml inj SUBQ SCH ×2 (08:46→21:09)
--- NOTE | 2018-07-09 09:12 | General Progress Note ---
Assessment/Plan Problem List: (1) Psoriasis with pustules ICD Codes: L40.8 - Other psoriasis SNOMED: 28309467 (2) Cellulitis ICD Codes: L03.90 - Cellulitis, unspecified SNOMED: 141792060 (3) Failure to thrive SNOMED: 61597278 Status: stable, progressing Assessment/Plan iv abx per id follow up cultures check echo- pending pain rx topical steroids skin care repeat labs dc planning to snf once cleared by ID Subjective ROS Limited/Unobtainable: No Constitutional: Reports: malaise, weakness HEENT: Reports: no symptoms Cardiovascular: Reports: no symptoms Respiratory: Reports: no symptoms Gastrointestinal/Abdominal: Reports: no symptoms Genitourinary: Reports: no symptoms Neurologic/Psychiatric: Reports: anxiety Endocrine: Reports: no symptoms Hematologic/Lymphatic: Reports: anemia Allergies: Coded Allergies: No Known Allergies (Unverified , 06/23/17) All Systems: reviewed and negative except above Subjective c/o pain and itching. on iv abx. no new complaints. Objective Last 24 Hour Vital Signs Date Time Temp Pulse Resp B/P (MAP) Pulse Ox O2 Delivery O2 Flow Rate FiO2 07/09/18 08:44 143/85 07/09/18 08:00 99.9 93 18 143/85 (104) 96 07/09/18 04:00 97.7 87 19 131/85 (100) 94 07/09/18 00:00 98.7 92 19 143/76 (98) 97 07/08/18 21:00 Room Air 07/08/18 20:00 99.0 91 20 160/90 (113) 97 07/08/18 15:55 97.5 100 20 141/82 (101) 97 07/08/18 12:00 97.7 78 18 147/80 (102) 97 Intake and Output 07/08/18 07/09/18 19:00 07:00 Intake Total 1375 ml 1425 ml Balance 1375 ml 1425 ml Intake Oral 600 ml 600 ml IV Total 775 ml 825 ml # Voids 3 2 # Bowel Movements 2 Height (Feet): 5 Height (Inches): 7.00 Weight (Pounds): 158 Objective General Appearance: WD/WN, alert Neck: supple Cardiovascular: normal rate, regular rhythm Respiratory/Chest: chest wall non-tender, lungs clear, normal breath sounds Abdomen: normal bowel sounds, non tender, soft, no organomegaly Edema: no edema noted Arm (L), no edema noted Arm (R), no edema noted Leg (L), no edema noted Leg (R), no edema noted Pedal (L), no edema noted Pedal (R), no edema noted Generalized 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
[2018-07-09] MEDS: Tylenol #3 tab (300mg/30mg) ORAL PRN (10:56)
[2018-07-09] MEDS: Triamcinolone 0.5% Cr 15gm TOPIC SCH ×3 (10:57→18:16)
--- NOTE | 2018-07-09 11:50 | Infectious Diseases Prog Note ---
Assessment/Plan Assessment/Plan antibiotics ; vancomycin iv A 1. bilateral leg cellulitis 2. + blood cultures with diphtheroids likely contaminated 3. psoriasis 4. hypertension P 1. continue iv vancomycin 2. will follow up cultures Subjective Constitutional: Denies: fever, chills Respiratory: Reports: shortness of breath, dry cough Gastrointestinal/Abdominal: Reports: nausea, vomiting; Denies: diarrhea Musculoskeletal: Denies: pain Allergies: Coded Allergies: No Known Allergies (Unverified , 06/23/17) Objective Vital Signs Last 24 Hour Vital Signs Date Time Temp Pulse Resp B/P (MAP) Pulse Ox O2 Delivery O2 Flow Rate FiO2 07/09/18 11:41 98.0 77 18 135/81 (99) 99 07/09/18 09:00 Room Air 07/09/18 08:44 143/85 07/09/18 08:00 99.9 93 18 143/85 (104) 96 07/09/18 04:00 97.7 87 19 131/85 (100) 94 07/09/18 00:00 98.7 92 19 143/76 (98) 97 07/08/18 21:00 Room Air 07/08/18 20:00 99.0 91 20 160/90 (113) 97 07/08/18 15:55 97.5 100 20 141/82 (101) 97 07/08/18 12:00 97.7 78 18 147/80 (102) 97 Height (Feet): 5 Height (Inches): 7.00 Weight (Pounds): 158 Respiratory/Chest: lungs clear Cardiovascular: normal rate, regular rhythm, no gallop/murmur Abdomen: soft, non tender Extremities: no edema, other - erythema of legs bilaterally Current Medications Medications (Trade) Dose Ordered Sig/Elisa Route PRN Reason Start Time Stop Time Status Last Admin Dose Admin Acetaminophen/ Codeine Phosphate (Tylenol #3) 1 tab Q6H PRN ORAL For Pain 07/06/18 07:51 07/13/18 07:50 07/09/18 10:56 Aspirin (Ecotrin) 81 mg DAILY ORAL 07/05/18 09:00 08/04/18 08:59 07/09/18 08:44 Atorvastatin Calcium (Lipitor) 40 mg BEDTIME ORAL 07/04/18 21:00 08/03/18 20:59 07/08/18 20:06 Cetylpyridinium Chloride (Cepacol) 1 lozg Q2H PRN STEWART SORE THROAT 07/07/18 11:30 08/06/18 11:29 07/09/18 06:00 Gabapentin (Neurontin) 300 mg BEDTIME ORAL 07/04/18 21:00 08/03/18 20:59 07/08/18 20:07 Heparin Sodium (Porcine) (Heparin 5000 units/ml) 5,000 units EVERY 12 HOURS SUBQ 07/08/18 21:00 08/07/18 20:59 07/09/18 08:46 Lisinopril (Prinivil) 20 mg DAILY ORAL 07/05/18 09:00 08/04/18 08:59 07/09/18 08:44 Tamsulosin HCl (Flomax) 0.4 mg BEDTIME ORAL 07/04/18 21:00 08/03/18 20:59 07/08/18 20:06 Triamcinolone Acetonide (Kenalog 0.5% Cr) 1 applic THREE TIMES A DAY TOPIC 07/06/18 13:00 08/05/18 12:59 07/09/18 10:57 Vancomycin HCl (Vanco rx to dose) 1 ea DAILY PRN MISC Per rx protocol 07/04/18 16:30 08/03/18 16:29 Vancomycin HCl/ Dextrose 250 ml @ 125 mls/hr Q24H IVPB 07/06/18 07:00 07/11/18 06:59 07/09/18 07:10 Katja Lovell MD Jul 09, 2018 11:50
[2018-07-09 12:04] LABS: BASOPHILS % (AUTO) 3.3 % (0.0-2.0); EOSINOPHILS % (AUTO) 2.3 % (0.0-3.0); HEMATOCRIT 26.6 % (42.0-52.0); HEMOGLOBIN 8.5 G/DL (14.2-18.0); LYMPHOCYTES % (AUTO) 34.1 % (20.0-45.0); MEAN CORPUSCULAR VOLUME 104 FL (80-99); NEUTROPHILS % (AUTO) 46.4 % (45.0-75.0); PLATELET COUNT 245 K/UL (150-450); RED BLOOD COUNT 2.56 M/UL (4.70-6.10); RED CELL DISTRIBUTION WIDTH 13.7 % (11.6-14.8); WHITE BLOOD COUNT 4.4 K/UL (4.8-10.8)
[2018-07-09 12:17] LABS: ALANINE AMINOTRANSFERASE 32 U/L (12-78); ALBUMIN 1.8 G/DL (3.4-5.0); ALBUMIN/GLOBULIN RATIO 0.4 (1.0-2.7); ALKALINE PHOSPHATASE 97 U/L (46-116); ANION GAP 4 mmol/L (5-15); ASPARTATE AMINO TRANSFERASE 64 U/L (15-37); BILIRUBIN,TOTAL 0.3 MG/DL (0.2-1.0); BLOOD UREA NITROGEN 6 mg/dL (7-18); CALCIUM 7.6 MG/DL (8.5-10.1); CARBON DIOXIDE 31 MMOL/L (21-32); CHLORIDE 107 MMOL/L (98-107); CREATININE 0.9 MG/DL (0.55-1.30); POTASSIUM 4.1 MMOL/L (3.5-5.1); SODIUM 142 MMOL/L (136-145)
[2018-07-09 12:19] LABS: IRON 44 ug/dL (50-175)
[2018-07-09] MEDS: Tamsulosin 0.4mg cap ORAL SCH (21:08)
[2018-07-09] MEDS: Atorvastatin 20mg tab ORAL SCH (21:08)
[2018-07-09] MEDS ORDERED: D5NS 1000ml IV ONE (22:41)
[2018-07-10 04:00] VITALS: BP 147/72
[2018-07-10] MEDS: Vancomycin 1.5 GM/D5W 250ML IVPB SCH (04:54)
[2018-07-10 09:22] VITALS: BP 152/90
[2018-07-10] MEDS: Lisinopril 20mg tab ORAL SCH (09:22)
[2018-07-10] MEDS: Aspirin EC 81mg tab ORAL SCH (09:22)
[2018-07-10] MEDS: Heparin 5000 units/ml inj SUBQ SCH (09:23)
[2018-07-10] MEDS: Triamcinolone 0.5% Cr 15gm TOPIC SCH (09:24)
[2018-07-10] MEDS: Tylenol #3 tab (300mg/30mg) ORAL PRN (09:35)
--- NOTE | 2018-07-10 12:19 | Infectious Diseases Prog Note ---
Assessment/Plan Assessment/Plan A; Cellulitis of legs Psoriasis Anemia HPN FTT P; Continue IV vancomycin Subjective ROS Limited/Unobtainable: No Constitutional: Reports: no symptoms Respiratory: Reports: no symptoms Cardiovascular: Reports: no symptoms Gastrointestinal/Abdominal: Reports: no symptoms Genitourinary: Reports: no symptoms Musculoskeletal: Reports: no symptoms Allergies: Coded Allergies: No Known Allergies (Unverified , 06/23/17) Objective Vital Signs Last 24 Hour Vital Signs Date Time Temp Pulse Resp B/P (MAP) Pulse Ox O2 Delivery O2 Flow Rate FiO2 07/10/18 09:22 152/90 07/10/18 04:00 98.2 91 18 147/72 (97) 96 07/09/18 23:59 98.2 96 19 143/77 (99) 96 07/09/18 20:42 Room Air 07/09/18 20:03 98.0 80 18 159/86 (110) 94 07/09/18 15:56 97.4 86 19 138/80 (99) 94 Height (Feet): 5 Height (Inches): 7.00 Weight (Pounds): 158 General Appearance: no acute distress HEENT: mucous membranes moist Respiratory/Chest: lungs clear Cardiovascular: normal rate Abdomen: soft, non tender Extremities: other - trace edema Skin: rash, other - improving erythema and ulcers of legs Neurologic/Psychiatric: alert, oriented x 3, responsive Current Medications Medications (Trade) Dose Ordered Sig/Elisa Route PRN Reason Start Time Stop Time Status Last Admin Dose Admin Acetaminophen/ Codeine Phosphate (Tylenol #3) 1 tab Q6H PRN ORAL For Pain 07/06/18 07:51 07/13/18 07:50 07/10/18 09:35 Aspirin (Ecotrin) 81 mg DAILY ORAL 07/05/18 09:00 08/04/18 08:59 07/10/18 09:22 Atorvastatin Calcium (Lipitor) 40 mg BEDTIME ORAL 07/04/18 21:00 08/03/18 20:59 07/09/18 21:08 Cetylpyridinium Chloride (Cepacol) 1 lozg Q2H PRN STEWART SORE THROAT 07/07/18 11:30 08/06/18 11:29 07/10/18 09:33 Gabapentin (Neurontin) 300 mg BEDTIME ORAL 07/04/18 21:00 08/03/18 20:59 07/09/18 21:08 Heparin Sodium (Porcine) (Heparin 5000 units/ml) 5,000 units EVERY 12 HOURS SUBQ 07/08/18 21:00 08/07/18 20:59 07/10/18 09:23 Lisinopril (Prinivil) 20 mg DAILY ORAL 07/05/18 09:00 08/04/18 08:59 07/10/18 09:22 Tamsulosin HCl (Flomax) 0.4 mg BEDTIME ORAL 07/04/18 21:00 08/03/18 20:59 07/09/18 21:08 Triamcinolone Acetonide (Kenalog 0.5% Cr) 1 applic THREE TIMES A DAY TOPIC 07/06/18 13:00 08/05/18 12:59 07/10/18 09:24 Vancomycin HCl (Vanco rx to dose) 1 ea DAILY PRN MISC Per rx protocol 07/04/18 16:30 08/03/18 16:29 Vancomycin HCl/ Dextrose 250 ml @ 125 mls/hr Q24H IVPB 07/06/18 07:00 07/11/18 06:59 07/10/18 04:54 Davin Friend MD Jul 10, 2018 12:19
--- NOTE | 2018-07-10 16:45 | Discharge Summary ---
DATE OF ADMISSION: 07/04/2018 DATE OF DISCHARGE: 07/10/2018 ADMISSION DIAGNOSES: 1. Cellulitis. 2. Bacteremia. 3. Sepsis. 4. History of severe psoriasis. 5. Toxic metabolic encephalopathy. 6. Acute renal failure and dehydration. DISCHARGE DIAGNOSES: 1. Cellulitis. 2. Bacteremia. 3. Sepsis. 4. History of severe psoriasis. 5. Toxic metabolic encephalopathy. 6. Acute renal failure and dehydration. HOSPITAL COURSE: The patient is a pleasant male admitted with complaints of sepsis secondary to cellulitis from severe psoriasis. He received IV antibiotics. Blood cultures grew out diphtheroids, this was felt to be likely a contaminant. Regardless he was treated with IV antibiotic therapy. He received local wound care. He is too weak to go home and will be referred to [facility] facility. We will continue wound care and therapy. DISCHARGE MEDICATIONS: Please see discharge list for discharge medications. DIET: Regular diet. ACTIVITY: Ad-gary. FOLLOWUP: The patient to follow up in one to two days at [facility] facility. Nato Tsai M.D. DR: Bebeto JOB#: [id number] CC:
--- NOTE | 2018-07-12 14:48 | Cardiology Report ---
APPROVED REPORT EKG Measurement Heart [id number] tremor artifact may affect interpretation likely sinus Left axis deviation Pulmonary disease pattern Abnormal ECG
== END 2018-07-10 13:30 | DRG 871 ==
LOC: EDBD 11:58 → EDBEDREQ 12:12 → EMR 12:40 → 4E 12:43 → EDBEDREQ 13:14
DX: A41.9 Sepsis, unspecified organism (principal); G92 Toxic encephalopathy; L03.90 Cellulitis, unspecified; N17.9 Acute kidney failure, unspecified; I11.9 Hypertensive heart disease without heart failure; L40.8 Other psoriasis; E86.0 Dehydration; R62.7 Adult failure to thrive; D64.9 Anemia, unspecified
CPT/HCPCS: 36415; 71045; 71250; 80053; 80202; 81003; 82550; 82553; 83540; 83605; 83690; 83880; 84484; 85025; 87040; 93005; 96361; 96365; 99285